=== PATIENT | male | born 1985 ===

== ENCOUNTER 2022-09-11 20:48 | Emergency (ER) | payer OTHER ==
[~2022-09-11] VITALS: Ht 180.3 cm; Wt 77.1 kg
[2022-09-11] MEDS ORDERED: TRUVADA 100 MG1 EACH PO (22:07)
== END 2022-09-12 01:41 | disposition home or self-care (01) ==
LOC: ER 20:48
DX: J06.9 Acute upper respiratory infection, unspecified (principal); B34.8 Other viral infections of unspecified site; Z20.828 Contact with and (suspected) exposure to other viral communicable diseases